=== PATIENT | male | born 1990 | race Caucasian/White ===

== ENCOUNTER 2020-11-24 03:00 | Inpatient (IN) | payer SELFPAY ==
[~2020-11-24] VITALS: Ht 162.6 cm; Wt 86.6 kg
[2020-11-24 03:19] VITALS: Ht 162.6 cm; Wt 86.6 kg
[2020-11-24 04:03] LABS: BASOPHIL % 0.6 % (0.2-1.5); PLATELET COUNT 225 x10^3mcL (152-348); RED CELL DISTRIBUTION WIDTH 13.2 % (12.1-16.2)
[2020-11-24 04:25] LABS: CALCIUM 9.1 mg/dL (8.5-10.1); CARBON DIOXIDE 24.6 mmol/L (21-32); CHLORIDE SERUM 99 mmol/L (98-107); GFR1 > 60 mL/min; GLUCOSE SERUM 124 mg/dL (74-106); POTASSIUM SERUM 3.4 mmol/L (3.5-5.1); SODIUM SERUM 138 mmol/L (136-145)
[2020-11-24 04:30] LABS: ALBUMIN 4.2 g/dL (3.4-5.0); ALKALINE PHOSPHATASE 78 U/L (46-116); ALT/SGPT 37 U/L (16-63); AST/SGOT 18 U/L (15-37); BILIRUBIN TOTAL 0.77 mg/dL (0.20-1.00); LIPASE 91 IU/L (73-393); TOTAL PROTEIN, SERUM 7.5 g/dL (6.4-8.2)
[2020-11-24] MEDS ORDERED: VITAMIN D3400 I1 PO (06:33)
[2020-11-24] MEDS ORDERED: ZINC50 M4 PO (06:33)
[2020-11-24] MEDS ORDERED: FISH OIL 1,0001 EAC2 PO (06:33)
[2020-11-24] MEDS ORDERED: MAGNESIUM200 M1 PO (06:33)
[2020-11-24 12:00] VITALS: BP 116/64
[2020-11-24 19:03] VITALS: BP 116/67
[2020-11-24 19:22] VITALS: BP 116/71
[2020-11-24 23:40] VITALS: BP 116/61
[2020-11-25 06:29] VITALS: BP 105/66
[2020-11-25 08:52] VITALS: BP 104/59
[2020-11-25 15:04] VITALS: BP 106/56
[2020-11-25 18:43] VITALS: BP 108/61
[2020-11-25 21:54] VITALS: BP 102/55
[2020-11-26 05:55] VITALS: BP 109/66
[2020-11-26 07:52] LABS: BASOPHIL % 0.3 % (0.2-1.5); PLATELET COUNT 200 x10^3mcL (152-348); RED CELL DISTRIBUTION WIDTH 13.2 % (12.1-16.2)
[2020-11-26 09:31] VITALS: BP 114/75
[2020-11-26 12:10] VITALS: BP 117/72
[2020-11-26 17:08] VITALS: BP 106/65
[2020-11-26 17:12] VITALS: BP 106/65
== END 2020-11-26 17:53 | disposition home or self-care (01) | DRG 340 ==
LOC: ED 03:00 → MU 05:58
PROVIDERS: Emergency Medicine; ADMIT Internal Medicine; ATTEND Surgery
PROC: 0DTJ4ZZ Resection of Appendix, Percutaneous Endoscopic Approach (ICD-10-PCS; principal; 2020-11-24 18:00)
DX: K35.32 Acute appendicitis with perforation, localized peritonitis, and gangrene, without abscess (principal); Z20.822 Contact with and (suspected) exposure to COVID-19; E87.6 Hypokalemia; R73.9 Hyperglycemia, unspecified
CPT/HCPCS: G0378; J2175; J2270; J2405; J2543; J3010; J3480; J3490; J7030; U0003